=== PATIENT | female | born 1955 | race African-American/Black ===

== ENCOUNTER 2018-07-04 21:20 | Inpatient (IN) | payer MEDICARE, OTHER ==
[~2018-07-04] VITALS: Ht 167.6 cm; Wt 90.3 kg
[2018-07-04] MEDS ORDERED: CYAN10009 PO (21:47)
[2018-07-04] MEDS ORDERED: MAGN400O6 PO (21:47)
[2018-07-04] MEDS ORDERED: LABE300T2 PO (21:47)
[2018-07-04] MEDS ORDERED: BISA10SU8 RC ×2 (21:47)
[2018-07-04] MEDS ORDERED: CLON0.3T PO (21:47)
[2018-07-04] MEDS ORDERED: ATOR10TA PO (21:47)
[2018-07-04] MEDS ORDERED: HYDR100T27 PO (21:47)
[2018-07-04] MEDS ORDERED: QUET25TA PO (21:47)
[2018-07-04] MEDS ORDERED: SENN-168 PO (21:47)
[2018-07-04] MEDS ORDERED: DOCU100C36 PO (21:47)
[2018-07-04] MEDS ORDERED: METF-440 PO (21:47)
[2018-07-04] MEDS ORDERED: BISA-79 PO (21:47)
[2018-07-04] MEDS ORDERED: POTA20TA10 PO (21:47)
[2018-07-04] MEDS ORDERED: ACET-2154 PO (21:47)
[2018-07-04] MEDS ORDERED: VENL75CA56 PO (21:47)
[2018-07-04] MEDS ORDERED: CLON0.1T PO (21:47)
[2018-07-04] MEDS ORDERED: NA P133E RC (21:47)
[2018-07-04] MEDS ORDERED: BENA20TA9 PO (21:47)
[2018-07-04 21:48] LABS: BASOPHILS # (AUTO) 0.1 K/uL (0.0-8.0); EOSINOPHILS # (AUTO) 0.2 K/uL (0.0-0.7); EOSINOPHILS % (AUTO) 2.4 % (0.0-7.0); HEMATOCRIT 33.1 % (31.2-41.9); HEMOGLOBIN 10.8 g/dL (10.9-14.3); LYMPHOCYTES # (AUTO) 2.6 K/uL (20.0-40.0); LYMPHOCYTES % (AUTO) 36.3 % (20.5-51.5); MEAN CORPUSCULAR HEMOGLOBIN 26.3 uug (24.7-32.8); MEAN CORPUSCULAR HGB CONC 33 g/dL (32.3-35.6); MEAN CORPUSCULAR VOLUME 80.6 fL (75.5-95.3); MONOCYTES # (AUTO) 0.5 K/uL (2.0-10.0); MONOCYTES % (AUTO) 7.3 % (0.0-11.0); NEUTROPHILS # (AUTO) 3.8 K/uL (1.8-8.9); PLATELET COUNT (AUTO) 288 K/uL (179-408); WHITE BLOOD COUNT (AUTO) 7.1 K/uL (3.8-11.8)
[2018-07-04 21:57] LABS: CARBON DIOXIDE 25 mmol/L (21-32); CHLORIDE 105 mmol/L (98-107); CREATININE 1.4 mg/dL (0.6-1.3); GLUCOSE 137 mg/dL (74-106); POTASSIUM 3.4 mmol/L (3.5-5.1); UREA NITROGEN, BLOOD 19 mg/dL (7-18)
[2018-07-04 22:03] LABS: ALANINE AMINOTRANSFERASE 32 U/L (14-59); ALKALINE PHOSPHATASE 51 U/L (50-136); ASPARTATE AMINOTRANSFERASE 12 U/L (15-37); BILIRUBIN,DIRECT 0.1 mg/dL (0.0-0.2); BILIRUBIN,TOTAL 0.3 mg/dL (0.2-1.0); ETHANOL < 3 MG/DL (0-0); TOTAL PROTEIN, SERUM 7.6 g/dL (6.4-8.2)
[2018-07-04 22:04] LABS: ACETAMINOPHEN < 2.0 ug/mL (10-30)
[2018-07-04 22:20] VITALS: BP 137/83
[2018-07-04] MEDS ORDERED: MAG HYDROX/AL HYDROX/SIMETH 30 ML LIQUID UDC PO PRN (22:30)
[2018-07-04] MEDS ORDERED: ACETAMINOPHEN 325 MG TABLET PO PRN (22:30)
[2018-07-04] MEDS ORDERED: ZOLPIDEM 5 MG TABLET PO PRN (22:30)
[2018-07-04] MEDS ORDERED: MAGNESIUM HYDROXIDE 30 ML LIQUID UDC PO PRN (22:30)
[2018-07-04 23:30] VITALS: BP 137/83
[2018-07-05 07:30] VITALS: BP 173/74
[2018-07-05] MEDS: VENLAFAXINE XR 75 MG CAP.SR.24H PO SCH (12:15)
[2018-07-05 15:59] VITALS: BP 191/94
[2018-07-05 20:00] VITALS: BP 172/90
[2018-07-05] MEDS: QUETIAPINE FUMARATE 25 MG TABLET PO SCH (20:14)
[2018-07-05] MEDS ORDERED: hydrALAZINE HCL 50 MG TABLET PO ONE (23:00)
[2018-07-05] MEDS ORDERED: BISACODYL 10 MG SUPP.RECT RC PRN (23:15)
[2018-07-05] MEDS ORDERED: FLEET ENEMA 133 ML BOTTLE RC PRN (23:15)
[2018-07-05] MEDS: LABETALOL HCL 200 MG TABLET PO SCH (23:15)
[2018-07-05] MEDS ORDERED: BISACODYL 10 MG SUPP.RECT RC ONE (23:30)
[2018-07-05] MEDS ORDERED: hydrALAZINE HCL 25 MG TABLET ONE (23:50)
[2018-07-06] MEDS: LABETALOL HCL 200 MG TABLET PO SCH ×3 (06:00→21:08)
[2018-07-06] MEDS: CLONIDINE HCL 0.1 MG TABLET PO PRN ×2 (06:34→14:54)
[2018-07-06] MEDS: LORAZEPAM 1 MG TABLET PO PRN (06:42)
[2018-07-06 07:30] VITALS: BP 167/87
[2018-07-06] MEDS: VENLAFAXINE XR 75 MG CAP.SR.24H PO SCH (08:05)
[2018-07-06] MEDS: METFORMIN HCL 500 MG TABLET PO SCH ×2 (08:05→16:30)
[2018-07-06] MEDS: CYANOCOBALAMIN 1,000 MCG TABLET PO SCH (08:05)
[2018-07-06] MEDS: POTASSIUM CHLORIDE 20 MEQ TAB.PRT.SR PO SCH (08:06)
[2018-07-06] MEDS: DOCUSATE SODIUM 100 MG CAPSULE PO SCH ×2 (08:06→16:29)
[2018-07-06] MEDS: BISACODYL 5 MG TABLET.DR PO SCH (08:06)
[2018-07-06] MEDS: hydrALAZINE HCL 50 MG TABLET PO SCH ×3 (08:12→16:30)
[2018-07-06 13:00] VITALS: BP 180/100
[2018-07-06 14:41] VITALS: BP 172/120
[2018-07-06 15:10] VITALS: BP 172/120
[2018-07-06 16:27] VITALS: BP 144/78
[2018-07-06] MEDS: ASPIRIN 81 MG TAB.CHEW PO SCH (16:33)
[2018-07-06 19:55] VITALS: BP 172/103
[2018-07-06] MEDS: ATORVASTATIN 10 MG TABLET PO SCH (20:47)
[2018-07-06] MEDS: BENAZEPRIL HCL 20 MG TABLET PO SCH (20:48)
[2018-07-06] MEDS: QUETIAPINE FUMARATE 25 MG TABLET PO SCH (20:49)
[2018-07-06] MEDS: SENNOSIDES 1 TABLET PO SCH (20:49)
[2018-07-07] MEDS: LABETALOL HCL 200 MG TABLET PO SCH ×3 (05:56→21:06)
[2018-07-07 08:02] VITALS: BP 140/93
[2018-07-07] MEDS: POTASSIUM CHLORIDE 20 MEQ TAB.PRT.SR PO SCH (08:19)
[2018-07-07] MEDS: BISACODYL 5 MG TABLET.DR PO SCH (08:19)
[2018-07-07] MEDS: ASPIRIN 81 MG TAB.CHEW PO SCH (08:19)
[2018-07-07] MEDS: VENLAFAXINE XR 75 MG CAP.SR.24H PO SCH (08:19)
[2018-07-07] MEDS: METFORMIN HCL 500 MG TABLET PO SCH ×2 (08:19→17:46)
[2018-07-07] MEDS: DOCUSATE SODIUM 100 MG CAPSULE PO SCH ×2 (08:19→17:46)
[2018-07-07] MEDS: hydrALAZINE HCL 50 MG TABLET PO SCH ×3 (08:21→17:46)
[2018-07-07] MEDS: CYANOCOBALAMIN 1,000 MCG TABLET PO SCH (08:22)
[2018-07-07 15:10] VITALS: BP 156/93
[2018-07-07 20:31] VITALS: BP 173/105
[2018-07-07] MEDS: QUETIAPINE FUMARATE 25 MG TABLET PO SCH (21:02)
[2018-07-07] MEDS: ATORVASTATIN 10 MG TABLET PO SCH (21:02)
[2018-07-07] MEDS: BENAZEPRIL HCL 20 MG TABLET PO SCH (21:03)
[2018-07-07] MEDS: SENNOSIDES 1 TABLET PO SCH (21:03)
[2018-07-07 23:00] VITALS: BP 158/88
[2018-07-08] MEDS: CLONIDINE HCL 0.1 MG TABLET PO PRN (01:49)
[2018-07-08] MEDS: LORAZEPAM 1 MG TABLET PO PRN ×2 (01:49→21:47)
[2018-07-08] MEDS: LABETALOL HCL 200 MG TABLET PO SCH ×3 (06:03→21:56)
[2018-07-08 07:30] VITALS: BP 160/87
[2018-07-08] MEDS: ASPIRIN 81 MG TAB.CHEW PO SCH (09:40)
[2018-07-08] MEDS: hydrALAZINE HCL 50 MG TABLET PO SCH ×3 (09:40→16:38)
[2018-07-08] MEDS: VENLAFAXINE XR 75 MG CAP.SR.24H PO SCH (09:40)
[2018-07-08] MEDS: DOCUSATE SODIUM 100 MG CAPSULE PO SCH ×2 (09:40→16:37)
[2018-07-08] MEDS: BISACODYL 5 MG TABLET.DR PO SCH (09:40)
[2018-07-08] MEDS: POTASSIUM CHLORIDE 20 MEQ TAB.PRT.SR PO SCH (09:40)
[2018-07-08] MEDS: CYANOCOBALAMIN 1,000 MCG TABLET PO SCH (09:41)
[2018-07-08] MEDS: METFORMIN HCL 500 MG TABLET PO SCH ×2 (09:43→16:37)
[2018-07-08 16:00] VITALS: BP 149/95
[2018-07-08 20:21] VITALS: BP 146/88
[2018-07-08] MEDS: ATORVASTATIN 10 MG TABLET PO SCH (20:27)
[2018-07-08] MEDS: QUETIAPINE FUMARATE 25 MG TABLET PO SCH (20:28)
[2018-07-08] MEDS: SENNOSIDES 1 TABLET PO SCH (20:28)
[2018-07-08] MEDS: BENAZEPRIL HCL 20 MG TABLET PO SCH (20:28)
[2018-07-09] MEDS: LABETALOL HCL 200 MG TABLET PO SCH ×3 (06:14→21:54)
[2018-07-09 07:30] VITALS: BP 169/72
[2018-07-09] MEDS: POTASSIUM CHLORIDE 20 MEQ TAB.PRT.SR PO SCH (09:11)
[2018-07-09] MEDS: CYANOCOBALAMIN 1,000 MCG TABLET PO SCH (09:11)
[2018-07-09] MEDS: ASPIRIN 81 MG TAB.CHEW PO SCH (09:11)
[2018-07-09] MEDS: DOCUSATE SODIUM 100 MG CAPSULE PO SCH ×2 (09:11→17:17)
[2018-07-09] MEDS: hydrALAZINE HCL 50 MG TABLET PO SCH ×3 (09:11→17:17)
[2018-07-09] MEDS: BISACODYL 5 MG TABLET.DR PO SCH (09:12)
[2018-07-09] MEDS: METFORMIN HCL 500 MG TABLET PO SCH ×2 (09:12→17:16)
[2018-07-09] MEDS: VENLAFAXINE XR 75 MG CAP.SR.24H PO SCH (09:12)
[2018-07-09 16:00] VITALS: BP 123/82
[2018-07-09 20:19] VITALS: BP 160/91
[2018-07-09] MEDS: ATORVASTATIN 10 MG TABLET PO SCH (20:21)
[2018-07-09] MEDS: QUETIAPINE FUMARATE 25 MG TABLET PO SCH (20:21)
[2018-07-09] MEDS: SENNOSIDES 1 TABLET PO SCH (20:21)
[2018-07-09] MEDS: BENAZEPRIL HCL 20 MG TABLET PO SCH (20:22)
[2018-07-10] MEDS: LABETALOL HCL 200 MG TABLET PO SCH (05:59)
[2018-07-10 07:30] VITALS: BP 177/87
[2018-07-10] MEDS: CYANOCOBALAMIN 1,000 MCG TABLET PO SCH (09:21)
[2018-07-10] MEDS: ASPIRIN 81 MG TAB.CHEW PO SCH (09:21)
[2018-07-10] MEDS: BISACODYL 5 MG TABLET.DR PO SCH (09:21)
[2018-07-10] MEDS: POTASSIUM CHLORIDE 20 MEQ TAB.PRT.SR PO SCH (09:21)
[2018-07-10] MEDS: VENLAFAXINE XR 75 MG CAP.SR.24H PO SCH (09:21)
[2018-07-10] MEDS: DOCUSATE SODIUM 100 MG CAPSULE PO SCH (09:21)
[2018-07-10] MEDS: METFORMIN HCL 500 MG TABLET PO SCH (09:21)
[2018-07-10 09:25] VITALS: BP 177/87
[2018-07-10] MEDS: hydrALAZINE HCL 50 MG TABLET PO SCH (09:25)
[2018-07-12] MEDS ORDERED: BISACODYL 10 MG SUPP.RECT RC SCH (09:00)
== END 2018-07-10 12:00 | DRG 885 ==
LOC: ER 21:20 → GPS 21:44
PROVIDERS: ADMIT Psychiatry & Neurology Psychiatry; ATTEND Nurse Practitioner Acute Care
DX: F39 Unspecified mood [affective] disorder (principal); N18.3 Chronic kidney disease, stage 3 (moderate); I69.354 Hemiplegia and hemiparesis following cerebral infarction affecting left non-dominant side; G91.1 Obstructive hydrocephalus; F29 Unspecified psychosis not due to a substance or known physiological condition; J44.9 Chronic obstructive pulmonary disease, unspecified; E11.22 Type 2 diabetes mellitus with diabetic chronic kidney disease; K21.9 Gastro-esophageal reflux disease without esophagitis; E11.40 Type 2 diabetes mellitus with diabetic neuropathy, unspecified; D63.8 Anemia in other chronic diseases classified elsewhere; E66.9 Obesity, unspecified; Z68.32 Body mass index [BMI] 32.0-32.9, adult; Z79.899 Other long term (current) drug therapy
CPT/HCPCS: 36415; 71045; 85025; 93005; 97110; 97112; 97530; A4663; G0480; G0480-TC